=== PATIENT | female | born 1985 | race Caucasian/White ===

== ENCOUNTER 2020-01-23 11:10 | Outpatient (CLI) | payer OTHER ==
[2020-01-23] MEDS ORDERED: IOHEXOL 50 ML IV ONE (11:48)
== END 2020-01-23 20:24 | disposition home or self-care (01) ==
LOC: SRD 11:10
PROVIDERS: ATTEND Specialist
DX: N92.6 Irregular menstruation, unspecified (principal)
CPT/HCPCS: 58340; 74740; C1751; Q9967

== ENCOUNTER 2022-01-22 14:50 | Emergency (ER) | payer OTHER ==
[~2022-01-22] VITALS: Ht 172.7 cm; Wt 108.9 kg
--- NOTE | 2022-01-22 15:25 | NUR ---
patient ambulated to bed 3 at this time
[2022-01-22 15:29] VITALS: BP_SYST 125
--- NOTE | 2022-01-22 15:35 | NUR ---
ER IN TRIAGE ROOM examining patient.
--- NOTE | 2022-01-22 16:58 | NUR ---
36yo f with c/o cramping x 1 week, right abdominal pain an bloating x 4 days and left-sided chest pain since last night. cp sharp, radiating to left shoulder, 7/10. no meds taken. pt currently going through IVF therapy x 1 week. pt states that she tested negative on urine test but has not gotten her regula rmenstrual period. in ed, vss. aox4. ambulatory. not in any distress. normal rate regular rhythm. clear breath sounds. abdomen soft, nontender. ermd made aware of pt status. pmh: hypothyroidism s/p total thyroidectomy, endometriosis, ovarion cysts
[2022-01-22 17:57] LABS: BASOPHILS # (AUTO) 0.1 K/uL (0.0-0.2); BASOPHILS % (AUTO) 0.5 % (0.0-2.0); EOSINOPHILS # (AUTO) 0.2 K/uL (0.0-0.4); EOSINOPHILS % (AUTO) 1.6 % (0.0-4.0); HEMATOCRIT 40.5 % (36-48); HEMOGLOBIN 14.4 g/dL (12.0-16.0); LYMPHOCYTES # (AUTO) 1.7 K/uL (1.0-5.5); LYMPHOCYTES % (AUTO) 14.8 % (20.5-51.5); MEAN CORPUSCULAR HEMOGLOBIN 31 pg (27-31); MEAN CORPUSCULAR HGB CONC 35 % (32-36); MEAN CORPUSCULAR VOLUME 88 fL (79.0-98.0); MONOCYTES # (AUTO) 0.6 K/uL (0.0-1.0); NEUTROPHILS # (AUTO) 8.8 K/uL (1.8-7.7); NEUTROPHILS % (AUTO) 78.1 % (40.0-70.0); PLATELET COUNT (AUTO) 466 K/uL (130-430); RED CELL DISTRIBUTION WIDTH 13.3 % (9.0-15.0); WHITE BLOOD COUNT (AUTO) 11.3 K/uL (4.8-10.8)
[2022-01-22 18:08] LABS: BILIRUBIN,URINE NEGATIVE (NEGATIVE); BLOOD, URINE NEGATIVE (NEGATIVE); CLARITY/URINE CLEAR (CLEAR); GLUCOSE,URINE NEGATIVE (NEGATIVE); KETONES,URINE NEGATIVE (NEGATIVE); LEUKOCYTE ESTERASE ,URINE NEGATIVE (NEGATIVE); NITRITE, URINE NEGATIVE (NEGATIVE); PH,URINE 6.5 (5.0-8.0); PROTEIN URINE NEGATIVE (NEGATIVE); UROBILINOGEN,URINE 0.2 (0.2-1.0)
[2022-01-22 18:10] LABS: ANION GAP 9 (5-15); CHLORIDE 104 mmol/L (98-107); CREATININE 0.69 mg/dL (0.55-1.30); GLUCOSE 95 mg/dL (70-99); SODIUM SERUM 138 mmol/L (136-145); UREA NITROGEN, BLOOD 10 mg/dL (8-21)
[2022-01-22 18:11] LABS: COLOR,URINE STRAW (YELLOW)
[2022-01-22 18:20] LABS: GFR AFRICAN AMERICAN 125 mL/min (>90)
[2022-01-22 18:23] LABS: ALANINE AMINOTRANSFERASE 38 U/L (12-78); ALBUMIN 3.6 g/dL (3.4-4.8); AMYLASE 26 U/L (0-100); ASPARTATE AMINOTRANSFERASE 19 U/L (10-37); LIPASE 120 U/L (73-393); TOTAL BILIRUBIN 0.5 mg/dL (0.0-1.0)
[2022-01-22 18:28] LABS: C-REACTIVE PROTEIN QUANT 0.2 mg/dL (0-0.5)
--- NOTE | 2022-01-22 19:16 | NUR ---
REPORT GIVEN TO SYDNEE SAUL. ALL CARES TRANSFERRED AT THIS TIME.
[2022-01-22 20:32] VITALS: BP_SYST 126
--- NOTE | 2022-01-22 20:32 | NUR ---
Patient given written and verbal discharge instructions and verbalizes understanding. ER Dr. Barajas discussed with patient the results and treatment provided. Patient in stable condition. ID arm band removed. Patient educated on pain management and to follow up with PMD. Pain Scale 3. Opportunity for questions provided and answered. Medication side effect fact sheet provided.
== END 2022-01-22 20:32 | disposition home or self-care (01) ==
LOC: SED 14:50
DX: R10.31 Right lower quadrant pain (principal); R07.2 Precordial pain
CPT/HCPCS: 36415; 71045; 76856-TC; 80053; 81003; 81025; 82150; 83690; 84484; 84702; 85025; 86140; 93005; 99285

== ENCOUNTER 2022-11-25 08:01 | Day surgery (SDC) | payer OTHER ==
[2022-11-24 11:59] LABS: BILIRUBIN,URINE NEGATIVE (NEGATIVE); CLARITY/URINE CLEAR (CLEAR); COLOR,URINE YELLOW (YELLOW); GLUCOSE,URINE NEGATIVE (NEGATIVE); KETONES,URINE NEGATIVE (NEGATIVE); LEUKOCYTE ESTERASE ,URINE NEGATIVE (NEGATIVE); NITRITE, URINE NEGATIVE (NEGATIVE); PH,URINE 7.5 (5.0-8.0); PROTEIN URINE NEGATIVE (NEGATIVE); UROBILINOGEN,URINE 0.2 (0.2-1.0)
[2022-11-24 12:12] LABS: BACTERIA,URINE None Seen /HPF (None Seen); BLOOD, URINE 1+ (NEGATIVE); WBC,URINE NONE SEEN /HPF (0-3)
[~2022-11-25] VITALS: Ht 172.7 cm; Wt 110.7 kg
[2022-11-25] MEDS ORDERED: WATER FOR IRRIGATION,STERILE 1,000 ML IRRIG.SOLN IR ONE (11:25)
[2022-11-25] MEDS ORDERED: DEXAMETHASONE SOD PHOSPHATE 4 MG/ML VIAL ONE (11:25)
[2022-11-25] MEDS ORDERED: NS IRRIG SOLN 1000 ML IR ONE (11:25)
[2022-11-25] MEDS ORDERED: ceFAZolin SODIUM 2 GM VIAL ONE (11:25)
[2022-11-25] MEDS ORDERED: SEVOFLURANE 15 MIN GAS INH ONE (11:25)
[2022-11-25] MEDS ORDERED: MIDAZOLAM HCL 2 MG/2 ML VIAL (VERSED) ONE (11:25)
[2022-11-25] MEDS ORDERED: fentaNYL CITRATE/PF 100 MCG/2 ML AMP ONE (11:25)
[2022-11-25] MEDS ORDERED: LIDOCAINE 2%, 20 ML MDV ONE (11:25)
[2022-11-25] MEDS ORDERED: PROPOFOL 200MG/ 20ML VIAL (DIPRIVAN) IV ONE (11:25)
[2022-11-25] MEDS ORDERED: LR 1,000 ML IV.SOLN IV ONE (11:25)
[2022-11-25] MEDS ORDERED: ONDANSETRON HCL 4 MG/2 ML VIAL ONE (11:25)
[2022-11-25] MEDS ORDERED: KETOROLAC TROMETHAMINE 30 MG VIAL ONE (11:25)
[2022-11-25] MEDS ORDERED: MEPERIDINE HCL/PF 25 MG/ML DISP.SYRIN IVP PRN (12:15)
[2022-11-25] MEDS ORDERED: LR 1,000 ML IV SCH (12:15)
[2022-11-25] MEDS ORDERED: METOCLOPRAMIDE HCL 10 MG/2 ML VIAL IVP PRN (12:15)
[2022-11-25] MEDS ORDERED: HYDROmorphone 1 MG/ML INJ. CARTRIDGE IVP PRN ×2 (12:15)
[2022-11-25] MEDS ORDERED: HYDROmorphone 1 MG/ML INJ. CARTRIDGE ONE ×2 (12:49→14:13)
[2022-11-25 15:45] VITALS: BP_SYST 120
== END 2022-11-25 15:25 | disposition home or self-care (01) ==
LOC: SDS 08:01 → SMU 08:04 → SDS 15:25
PROVIDERS: ATTEND Specialist
DX: N92.0 Excessive and frequent menstruation with regular cycle (principal); G43.909 Migraine, unspecified, not intractable, without status migrainosus; E03.9 Hypothyroidism, unspecified; Z79.899 Other long term (current) drug therapy
CPT/HCPCS: 81000; 87081; 58558; 88305; J1100; J1885; J2001; J3465; J2405; J2704; J3010; J1170; J7120

== ENCOUNTER 2023-07-29 15:22 | Day surgery (SDC) | payer OTHER ==
[~2023-07-29] VITALS: Ht 172.7 cm; Wt 108.9 kg
[2023-07-29 15:30] VITALS: BP_SYST 110; PULSE 120; RESP 17; TEMP 99.1; O2SAT 96
[2023-07-29] MEDS ORDERED: MORPHINE 4 MG INJ. 4 MG/ML VIAL ONE (15:43)
[2023-07-29] MEDS ORDERED: ONDANSETRON HCL 4 MG/2 ML VIAL ONE ×2 (15:43→20:45)
[2023-07-29] MEDS ORDERED: MORPHINE 4 MG INJ. 4 MG/ML VIAL IVP ONE (15:45)
[2023-07-29] MEDS ORDERED: NACL 0.9% 1,000 ML IV ONE (15:45)
[2023-07-29] MEDS ORDERED: ONDANSETRON 4 MG ODT TAB PO ONE (15:45)
[2023-07-29 16:05] LABS: BASOPHILS % (AUTO) 0.2 % (0.0-2.0); EOSINOPHILS # (AUTO) 0.1 K/uL (0.0-0.4); EOSINOPHILS % (AUTO) 0.5 % (0.0-4.0); HEMATOCRIT 34.1 % (36-48); HEMOGLOBIN 12.1 g/dL (12.0-16.0); LYMPHOCYTES # (AUTO) 1.7 K/uL (1.0-5.5); LYMPHOCYTES % (AUTO) 12.6 % (20.5-51.5); MEAN CORPUSCULAR HEMOGLOBIN 31 pg (27-31); MEAN CORPUSCULAR HGB CONC 35 % (32-36); MEAN CORPUSCULAR VOLUME 89 fL (79.0-98.0); MONOCYTES % (AUTO) 7.8 % (1.7-9.3); NEUTROPHILS # (AUTO) 10.7 K/uL (1.8-7.7); NEUTROPHILS % (AUTO) 78.9 % (40.0-70.0); PLATELET COUNT (AUTO) 499 K/uL (130-430); RED BLOOD CELL COUNT(AUTO) 3.85 MIL/uL (4.2-6.2); RED CELL DISTRIBUTION WIDTH 13.3 % (9.0-15.0); WHITE BLOOD COUNT (AUTO) 13.5 K/uL (4.8-10.8)
[2023-07-29] MEDS ORDERED: ONDANSETRON HCL 4 MG/2 ML VIAL IVP ONE ×2 (16:15→19:30)
[2023-07-29] MEDS ORDERED: HYDROmorphone 1 MG/ML INJ. CARTRIDGE IVP ONE ×2 (16:15→20:45)
[2023-07-29 16:46] LABS: CREATININE 0.88 mg/dL (0.55-1.30)
[2023-07-29 17:56] VITALS: TEMP 98.9
[2023-07-29] MEDS ORDERED: LR 1,000 ML IV.SOLN IV ONE (20:45)
[2023-07-29] MEDS ORDERED: SEVOFLURANE 15 MIN GAS INH ONE (20:45)
[2023-07-29] MEDS ORDERED: METOCLOPRAMIDE HCL 10 MG/2 ML VIAL ONE (20:45)
[2023-07-29] MEDS ORDERED: ePHEDrine sulfate 50 MG/ML VIAL ONE (20:45)
[2023-07-29] MEDS ORDERED: SUCCINYLCHOLINE CHLORIDE 20 MG/ML(QUELICIN) ONE (20:45)
[2023-07-29] MEDS ORDERED: ROCURONIUM BROMIDE 10 MG/ML (ZEMURON) ONE (20:45)
[2023-07-29] MEDS ORDERED: LIDOCAINE/EPI 1% 1:100000 20 ML VIAL ONE (20:45)
[2023-07-29] MEDS ORDERED: GLYCOPYRROLATE 0.2 MG/ML VIAL ONE (20:45)
[2023-07-29] MEDS ORDERED: ceFAZolin SODIUM 2 GM VIAL ONE (20:45)
[2023-07-29] MEDS ORDERED: NEOSTIGMINE METHYLSULFATE 1 MG/ML, 10 ML VIAL ONE (20:45)
[2023-07-29] MEDS ORDERED: PROPOFOL 200MG/ 20ML VIAL (DIPRIVAN) IV ONE (20:45)
[2023-07-29] MEDS ORDERED: fentaNYL CITRATE/PF 100 MCG/2 ML AMP ONE ×2 (20:49→22:47)
[2023-07-29] MEDS ORDERED: OXYCODONE/ACETAMINOPHEN 5-325 TABLET PO PRN ×2 (21:15)
[2023-07-29] MEDS ORDERED: ONDANSETRON HCL 4 MG/2 ML VIAL IVP PRN ×2 (21:15→22:45)
[2023-07-29] MEDS ORDERED: HYDROcodone/ACETAMIN 5-325 MG TAB (NORCO/ VICODIN) PO PRN (21:15)
[2023-07-29 21:55] VITALS: PULSE 124; RESP 20; O2SAT 97
[2023-07-29] MEDS ORDERED: HYDROmorphone 1 MG/ML INJ. CARTRIDGE IVP PRN ×2 (22:45)
[2023-07-29] MEDS ORDERED: METOCLOPRAMIDE HCL 10 MG/2 ML VIAL IVP PRN (22:45)
[2023-07-29] MEDS ORDERED: ACETAMINOPHEN I.V. 1000 MG 100 ML IV ONE (22:58)
[2023-07-29 23:03] VITALS: BP_SYST 132
[2023-07-30] MEDS ORDERED: METOCLOPRAMIDE HCL 10 MG/2 ML VIAL ONE (00:26)
[2023-08-02] MEDS ORDERED: MORPHINE 4 MG INJ. 4 MG/ML VIAL IVP ONE (08:45)
== END 2023-07-30 00:53 | disposition home or self-care (01) ==
LOC: SED 15:22 → SMU 21:29 → SDS 21:29 → SMU 21:55 → SDS 07-30 00:53
PROVIDERS: ATTEND Specialist
DX: O00.101 Right tubal pregnancy without intrauterine pregnancy (principal); N93.8 Other specified abnormal uterine and vaginal bleeding; E66.01 Morbid (severe) obesity due to excess calories; J45.909 Unspecified asthma, uncomplicated; Z79.899 Other long term (current) drug therapy
CPT/HCPCS: 59151; 58120; 96361; 96375; 96376; 80048; 84702; 85025; 86886; 86900; 86901; 36415; 93005; 71045; 99291; 88305; J3490; J2765 ×2; J2405; J2704; J0330; J3010; J1170; J2270; J7120; C1727; J0131; J2710